=== PATIENT | female | born 1995 | race Caucasian/White ===

== ENCOUNTER 2024-04-14 15:50 | Outpatient (REF) | payer BC, SELFPAY ==
--- NOTE | 2024-04-14 15:00 | PAPFT_PTH ---
PATIENT: EVGENY ALEMAN LOC: [facility] U#:[id number] AGE/SX: 28/F ROOM: RE04/14/[address]: Brigitte Duckworth DO : 1995 BED: DIS: 04/14/2024 SPEC #: [id number] RECD: 04/14/24 18:16 STATUS: SOUSanju REQ #: [id number] LAURENCE: 04/14/24 15:[address]: Brigitte Duckworth DEPT: [facility] Cytology RECD BY: Alma Barakat ENTERED: 04/14/24 18:16 SP TYPE: PAPFT OTHR DR: Unknown,Unknown Tissues: 1 - CX/ENDOCX FOR PAP SMEARS Procedures: PAP THIN PREP/[facility] Screening HPV DNA PROBE Comments: [id number] (HPV 16 & 18/45)
== END 2024-04-14 15:51 | disposition home or self-care (01) ==
LOC: LBN 15:50
PROVIDERS: Visit Provider Obstetrics & Gynecology
DX: Z12.4 Encounter for screening for malignant neoplasm of cervix (principal)
CPT/HCPCS: 88142; 87624